=== PATIENT | female | born 1960 | race Caucasian/White ===

== ENCOUNTER 2017-08-25 11:56 | Inpatient (IN) | payer BC ==
[~2017-08-25] VITALS: Ht 177.8 cm; Wt 115.9 kg
[~2017-08-25 11:56] MED LIST: CLON0.5T4 PO; ESCI10TA PO; LISI-221 PO; OMEP10CA4 PO; TOPXL100 PO; UMEC1BLS IH
[2017-08-25 12:07] VITALS: BP_SYST 167
[2017-08-25 12:29] LABS: BASOPHILS # (AUTO) 0.1 K/uL (0.0-0.2); BASOPHILS % (AUTO) 0.8 % (0.0-2.0); EOSINOPHILS # (AUTO) 0.1 K/uL (0.0-0.4); EOSINOPHILS % (AUTO) 1.1 % (0.0-4.0); HEMATOCRIT 45.1 % (36-48); HEMOGLOBIN 14.9 g/dL (12.0-16.0); LYMPHOCYTES # (AUTO) 3.7 K/uL (1.0-5.5); LYMPHOCYTES % (AUTO) 29.4 % (20.5-51.5); MEAN CORPUSCULAR HEMOGLOBIN 29 pg (27-31); MEAN CORPUSCULAR HGB CONC 33 % (32-36); MEAN CORPUSCULAR VOLUME 86 fL (79.0-98.0); MONOCYTES # (AUTO) 0.7 K/uL (0.0-1.0); MONOCYTES % (AUTO) 5.2 % (1.7-9.3); NEUTROPHILS # (AUTO) 8.1 K/uL (1.8-7.7); NEUTROPHILS % (AUTO) 63.5 % (40.0-70.0); PLATELET COUNT (AUTO) 243 K/uL (130-430); RED BLOOD CELL COUNT(AUTO) 5.22 MIL/uL (4.2-6.2); RED CELL DISTRIBUTION WIDTH 12.6 % (9.0-15.0); WHITE BLOOD COUNT (AUTO) 12.7 K/uL (4.8-10.8)
[2017-08-25] MEDS ORDERED: LORazepam 2 MG/ML VIAL (FOR ER USE) IVP ONE (12:30)
[2017-08-25 12:35] LABS: CALCIUM 9.8 mg/dL (8.4-11.0); CREATININE 0.77 mg/dL (0.55-1.30); POTASSIUM 3.6 mmol/L (3.5-5.1)
[2017-08-25] MEDS ORDERED: GLU500 PO (12:36)
[2017-08-25 12:40] LABS: ALBUMIN 3.6 g/dL (3.4-4.8); TOTAL BILIRUBIN 0.3 mg/dL (0.0-1.0)
[2017-08-25 12:41] LABS: INR 0.9 (0.8-1.2); PROTHROMBIN TIME 9.6 SECS (9.5-12.5)
[2017-08-25] MEDS ORDERED: GLIM1TAB PO (13:17)
[2017-08-25] MEDS ORDERED: GLIM2TAB2 PO (13:17)
[2017-08-25 14:06] VITALS: BP_SYST 120
[2017-08-25 14:12] LABS: BILIRUBIN,URINE NEGATIVE (NEGATIVE); COLOR,URINE YELLOW (YELLOW); GLUCOSE,URINE NEGATIVE (NEGATIVE); KETONES,URINE NEGATIVE (NEGATIVE); LEUKOCYTE ESTERASE ,URINE 3+ (NEGATIVE); NITRITE, URINE NEGATIVE (NEGATIVE); PROTEIN URINE NEGATIVE (NEGATIVE); UROBILINOGEN,URINE 0.2 (0.2-1.0)
[2017-08-25 14:17] LABS: BLOOD, URINE TRACE (NEGATIVE); CLARITY/URINE HAZY (CLEAR)
[2017-08-25 14:29] LABS: BACTERIA,URINE FEW /HPF (None Seen); MUCUS,URINE None Seen /LPF (None Seen); RBC,URINE 0-3 /HPF (0-3); WBC,URINE 50-80 /HPF (0-3)
[2017-08-25 16:30] VITALS: BP_SYST 124
[2017-08-25] MEDS ORDERED: IPRATROPIUM BROM 0.5 MG/2.5 ML VIAL.NEB (ATROVENT) INH PRN (17:00)
[2017-08-25] MEDS ORDERED: DEXTROSE 50% JECT 50 ML DISP.SYRIN IVP PRN (17:00)
[2017-08-25] MEDS ORDERED: ALBUTEROL SULFATE 0.083% 2.5 MG/3 ML VIAL.NEB INH PRN (17:00)
[2017-08-25] MEDS ORDERED: GLIMEPIRIDE 2 MG TABLET PO SCH (17:00)
[2017-08-25 17:48] LABS: THYROID STIMULATING HORMONE 0.72 uIu/mL (0.34-4.82)
[2017-08-25] MEDS ORDERED: clonazePAM 0.5 MG TABLET PO ONE (18:30)
[2017-08-25] MEDS ORDERED: NICOTINE 21 MG/24 HR PATCH.TD24 TD ONE (18:30)
[2017-08-25] MEDS ORDERED: ASPIRIN 81 MG TAB.CHEW PO ONE (18:30)
[2017-08-25] MEDS: metFORMIN HCL 500 MG TABLET PO SCH (18:43)
[2017-08-25] MEDS: LORazepam 1 MG TABLET PO PRN (18:43)
[2017-08-25 19:50] VITALS: BP_SYST 141
[2017-08-25] MEDS ORDERED: LORazepam 1 MG TABLET PO ONE (20:30)
[2017-08-25] MEDS: IPRATROPIUM BROM 0.5 MG/2.5 ML VIAL.NEB (ATROVENT) INH SCH ×2 (20:46→23:09)
[2017-08-25] MEDS: ALBUTEROL SULFATE 0.083% 2.5 MG/3 ML VIAL.NEB INH SCH ×2 (20:47→23:09)
[2017-08-25 22:33] VITALS: BP_SYST 141
[2017-08-26 00:42] VITALS: BP_SYST 129
[2017-08-26] MEDS: IPRATROPIUM BROM 0.5 MG/2.5 ML VIAL.NEB (ATROVENT) INH SCH ×3 (03:30→11:00)
[2017-08-26] MEDS: ALBUTEROL SULFATE 0.083% 2.5 MG/3 ML VIAL.NEB INH SCH ×3 (03:30→11:00)
[2017-08-26] MEDS: INSULIN REGULAR, HUMAN 100 UNITS/ML, 10 ML VIAL (novoLIN R) SUBCUT PRN ×2 (06:22)
[2017-08-26] MEDS: LORazepam 1 MG TABLET PO PRN (06:32)
[2017-08-26] MEDS ORDERED: GLIMEPIRIDE 2 MG TABLET PO SCH (07:00)
[2017-08-26 08:26] VITALS: BP_SYST 150
[2017-08-26] MEDS: metFORMIN HCL 500 MG TABLET PO SCH (08:32)
[2017-08-26] MEDS ORDERED: clonazePAM 0.5 MG TABLET PO SCH (09:00)
[2017-08-26] MEDS ORDERED: HYDROCHLOROTHIAZIDE 25 MG TABLET (HCTZ) PO SCH (09:00)
[2017-08-26] MEDS ORDERED: NICOTINE 21 MG/24 HR PATCH.TD24 TD SCH (09:00)
[2017-08-26] MEDS ORDERED: ASPIRIN 81 MG TAB.CHEW PO SCH ×2 (09:00→09:30)
[2017-08-26] MEDS ORDERED: CITALOPRAM HYDROBROMIDE 20 MG TABLET PO SCH (09:00)
[2017-08-26] MEDS ORDERED: NON-FORMULARY MEDICATION (Lisinopril/Hctz* (LISINOPRIL-HCTZ 20-25 Mg Tab*) 1 TAB) PO SCH (09:00)
[2017-08-26] MEDS ORDERED: LISINOPRIL 20 MG TABLET PO SCH (09:00)
[2017-08-26] MEDS ORDERED: [UNRECOGNIZED DRUG - OTHER] IH SCH (09:00)
[2017-08-26] MEDS ORDERED: ATORVASTATIN 10 MG TABLET PO ONE (10:15)
[2017-08-26] MEDS ORDERED: METOPROLOL SUCCINATE 50 MG TAB.SR.24H (TOPROL XL) PO ONE (10:15)
[2017-08-26] MEDS ORDERED: LIP10 PO (11:11)
[2017-08-26] MEDS ORDERED: METO50TA7 PO (11:12)
[2017-08-26 11:16] VITALS: BP_SYST 143
[2017-08-26] MEDS ORDERED: LORazepam 1 MG TABLET PO ONE (11:30)
[2017-08-26 12:22] VITALS: BP_SYST 147
[2017-08-27] MEDS ORDERED: ATORVASTATIN 10 MG TABLET PO SCH (09:00)
[2017-08-27] MEDS ORDERED: METOPROLOL SUCCINATE 50 MG TAB.SR.24H (TOPROL XL) PO SCH (09:00)
== END 2017-08-26 13:16 | disposition home or self-care (01) | DRG 880 ==
LOC: SED 11:56 → STU 12:59
PROVIDERS: ADMIT Internal Medicine Hospice and Palliative Medicine; ATTEND Internal Medicine Hospice and Palliative Medicine
DX: F41.9 Anxiety disorder, unspecified (principal); E11.9 Type 2 diabetes mellitus without complications; E78.5 Hyperlipidemia, unspecified; F32.9 Major depressive disorder, single episode, unspecified; K21.9 Gastro-esophageal reflux disease without esophagitis; I10 Essential (primary) hypertension; F17.210 Nicotine dependence, cigarettes, uncomplicated; I49.3 Ventricular premature depolarization; J44.9 Chronic obstructive pulmonary disease, unspecified; Z80.1 Family history of malignant neoplasm of trachea, bronchus and lung; Z90.49 Acquired absence of other specified parts of digestive tract; Z88.0 Allergy status to penicillin; Z79.899 Other long term (current) drug therapy
CPT/HCPCS: 36415; 71045; 80053; 80061; 81000-TC; 82962; 83880; 84443-TC; 84484; 85025; 85610-TC; 85730-TC; 87086; 93005; 93306; 94640; 94760; 96374; 99285; J2060

== ENCOUNTER 2019-02-08 11:26 | Emergency (ER) | payer BC ==
[~2019-02-08] VITALS: Ht 177.8 cm; Wt 117.9 kg
[~2019-02-08 11:26] MED LIST changes: +CLON0.5T12 PO; -CLON0.5T4 PO; +GLIM1TAB PO; +GLIM2TAB2 PO; +GLU500 PO; +LIP10 PO; +METO50TA7 PO; -TOPXL100 PO
[2019-02-08 11:41] VITALS: BP_SYST 157
--- NOTE | 2019-02-08 11:48 | NUR ---
Patient to ER bed 2 to gown for evaluation. Side rails up. Report given to Chilango SINGH.
--- NOTE | 2019-02-08 11:54 | NUR ---
Patient is awake, alert, and oriented x4. Patient is complaining of lower back radiating to her groin x4 days. Patient also report nausea and diarrhea. Patient denies vomiting.
--- NOTE | 2019-02-08 12:00 | NUR ---
ER Dr. Simmons at bedside examining patient.
[2019-02-08] MEDS ORDERED: fentaNYL CITRATE/PF 100 MCG/2 ML AMP IM ONE (12:15)
--- NOTE | 2019-02-08 12:26 | NUR ---
Pt taken to radiology via gurney in stable condition
--- NOTE | 2019-02-08 13:28 | NUR ---
Patient given written and verbal discharge instructions and verbalizes understanding. ER MD discussed with patient the results and treatment provided. Patient in stable condition. ID arm band removed. Rx of macrobid, naproxen, tramadol given. Patient educated on pain management and to follow up with PMD. Pain Scale 10/10, MD is aware, patient medicated prior to DC. Opportunity for questions provided and answered. Medication side effect fact sheet provided.
[2019-02-08 13:29] VITALS: BP_SYST 145
[2019-02-08] MEDS ORDERED: MORPHINE SULFATE 10 MG/ML VIAL IM ONE (13:30)
== END 2019-02-08 13:29 | disposition home or self-care (01) ==
LOC: SED 11:26
DX: N39.0 Urinary tract infection, site not specified (principal); M54.5 Low back pain; J44.9 Chronic obstructive pulmonary disease, unspecified; E11.9 Type 2 diabetes mellitus without complications; I10 Essential (primary) hypertension; E78.00 Pure hypercholesterolemia, unspecified; F17.210 Nicotine dependence, cigarettes, uncomplicated; Z88.0 Allergy status to penicillin; Z79.899 Other long term (current) drug therapy
CPT/HCPCS: 72100; 72170; 81002; 96372; 99283; J2270; J3010

== ENCOUNTER 2020-01-05 11:03 | Emergency (ER) | payer BC ==
[~2020-01-05] VITALS: Ht 177.8 cm; Wt 108.9 kg
[~2020-01-05 11:03] MED LIST changes: +AMLO5TAB4 PO; +AZIT250T PO; +FURO-150 PO; -GLIM1TAB PO; -GLIM2TAB2 PO; -LIP10 PO; -OMEP10CA4 PO; +SITA100T11 PO; +TYC3 PO
[2020-01-05 11:16] VITALS: BP_SYST 162
[2020-01-05] MEDS ORDERED: EPINEPHrine 1 MG/ML AMP IM ONE (11:30)
[2020-01-05] MEDS ORDERED: KETOROLAC TROMETHAMINE 60 MG/2 ML VIAL IM ONE (12:15)
[2020-01-05 12:36] VITALS: BP_SYST 152
== END 2020-01-05 12:36 | disposition home or self-care (01) ==
LOC: SED 11:03
DX: T78.40XA Allergy, unspecified, initial encounter (principal); J44.9 Chronic obstructive pulmonary disease, unspecified; I10 Essential (primary) hypertension; E11.9 Type 2 diabetes mellitus without complications; E78.00 Pure hypercholesterolemia, unspecified; Z79.899 Other long term (current) drug therapy; Z88.0 Allergy status to penicillin; X58.XXXA Exposure to other specified factors, initial encounter
CPT/HCPCS: 96372; 99284; J0171; J1885

== ENCOUNTER 2020-01-13 09:20 | Inpatient (IN) | payer BC ==
[~2020-01-13] VITALS: Ht 182.9 cm; Wt 108.9 kg
[2020-01-13 09:20] VITALS: BP_SYST 138
[2020-01-13] MEDS ORDERED: NS 500 ML IV ONE (09:45)
[2020-01-13] MEDS ORDERED: DOXYCYCLINE HYCLATE 100 MG in D5W 100 ML IV ONE (09:45)
[2020-01-13 10:07] LABS: BASOPHILS # (AUTO) 0.1 K/uL (0.0-0.2); BASOPHILS % (AUTO) 0.5 % (0.0-2.0); EOSINOPHILS # (AUTO) 0.2 K/uL (0.0-0.4); EOSINOPHILS % (AUTO) 1.1 % (0.0-4.0); HEMATOCRIT 36.7 % (36-48); HEMOGLOBIN 12.3 g/dL (12.0-16.0); LYMPHOCYTES # (AUTO) 1.9 K/uL (1.0-5.5); LYMPHOCYTES % (AUTO) 12.6 % (20.5-51.5); MEAN CORPUSCULAR HEMOGLOBIN 29 pg (27-31); MEAN CORPUSCULAR HGB CONC 33 % (32-36); MEAN CORPUSCULAR VOLUME 87 fL (79.0-98.0); MONOCYTES # (AUTO) 0.9 K/uL (0.0-1.0); MONOCYTES % (AUTO) 5.9 % (1.7-9.3); NEUTROPHILS # (AUTO) 12.3 K/uL (1.8-7.7); NEUTROPHILS % (AUTO) 79.9 % (40.0-70.0); PLATELET COUNT (AUTO) 219 K/uL (130-430); RED BLOOD CELL COUNT(AUTO) 4.24 MIL/uL (4.2-6.2); RED CELL DISTRIBUTION WIDTH 14.1 % (9.0-15.0); WHITE BLOOD COUNT (AUTO) 15.3 K/uL (4.8-10.8)
[2020-01-13 10:25] LABS: CALCIUM 9.7 mg/dL (8.4-11.0); CREATININE 0.7 mg/dL (0.55-1.30); POTASSIUM 3.8 mmol/L (3.5-5.1)
[2020-01-13 10:28] LABS: PROTHROMBIN TIME 9.6 SECS (9.5-12.5)
[2020-01-13 10:30] LABS: ALBUMIN 3.2 g/dL (3.4-4.8); TOTAL BILIRUBIN 0.4 mg/dL (0.0-1.0)
[2020-01-13] MEDS ORDERED: DOXYCYCLINE HYCLATE 100 MG VIAL IV ONE ×2 (10:33→22:13)
[2020-01-13] MEDS ORDERED: ACETAMINOPHEN 325 MG TABLET PO PRN ×2 (12:00→17:00)
[2020-01-13] MEDS ORDERED: MORPHINE 2 MG/ML INJ. SYRINGE IVP ONE (12:15)
[2020-01-13] MEDS ORDERED: ACETAMINOPHEN 325 MG TABLET ONE (12:17)
[2020-01-13 13:20] VITALS: BP_SYST 142
[2020-01-13] MEDS ORDERED: KETOROLAC TROMETHAMINE 30 MG VIAL IVP ONE (14:30)
[2020-01-13] MEDS ORDERED: clonazePAM 0.5 MG TABLET PO PRN (17:00)
[2020-01-13] MEDS ORDERED: ACETAMINOPHEN/CODEINE 300 MG-30 MG TABLET PO PRN (17:00)
[2020-01-13] MEDS ORDERED: HYDROcodone/ACETAMIN 5-325 MG TAB (NORCO/ VICODIN) PO PRN (17:00)
[2020-01-13] MEDS ORDERED: ONDANSETRON HCL 4 MG/2 ML VIAL IVP PRN (17:00)
[2020-01-13] MEDS ORDERED: LORazepam 2 MG/ML VIAL IVP PRN (17:00)
[2020-01-13] MEDS ORDERED: NALOXONE HCL 0.4 MG/ML AMP (NARCAN) IVP PRN ×4 (17:00)
[2020-01-13 17:54] VITALS: BP_SYST 158
[2020-01-13] MEDS: metFORMIN HCL 500 MG TABLET PO SCH (18:06)
[2020-01-13] MEDS: MORPHINE 2 MG/ML INJ. SYRINGE IVP PRN ×2 (18:07→22:35)
[2020-01-13 20:00] VITALS: BP_SYST 144
[2020-01-13] MEDS: HYDROcodone/ACETAMIN 10-325 MG TAB PO PRN (20:22)
[2020-01-13] MEDS: NORMAL SALINE 5 ML DISP.SYRIN IVF SCH (22:00)
[2020-01-13] MEDS ORDERED: NORMAL SALINE 5 ML DISP.SYRIN IVF SCH (22:00)
[2020-01-13] MEDS: DOXYCYCLINE HYCLATE 100 MG in D5W 100 ML IV SCH (23:05)
[2020-01-14] MEDS: HYDROcodone/ACETAMIN 10-325 MG TAB PO PRN ×5 (00:13→20:41)
[2020-01-14] MEDS: MORPHINE 2 MG/ML INJ. SYRINGE IVP PRN ×5 (04:12→22:43)
[2020-01-14] MEDS: NORMAL SALINE 5 ML DISP.SYRIN IVF SCH ×3 (04:46→22:44)
[2020-01-14] MEDS: IPRATROPIUM BROM 0.5 MG/2.5 ML VIAL.NEB (ATROVENT) INH SCH ×3 (08:00→20:10)
[2020-01-14] MEDS: ALBUTEROL SULFATE 0.083% 2.5 MG/3 ML VIAL.NEB INH SCH ×3 (08:00→20:10)
[2020-01-14 08:22] LABS: BASOPHILS % (AUTO) 0.2 % (0.0-2.0); EOSINOPHILS # (AUTO) 0.1 K/uL (0.0-0.4); EOSINOPHILS % (AUTO) 0.8 % (0.0-4.0); HEMATOCRIT 37.5 % (36-48); HEMOGLOBIN 12.4 g/dL (12.0-16.0); LYMPHOCYTES # (AUTO) 1.9 K/uL (1.0-5.5); LYMPHOCYTES % (AUTO) 13.2 % (20.5-51.5); MEAN CORPUSCULAR HEMOGLOBIN 28 pg (27-31); MEAN CORPUSCULAR HGB CONC 33 % (32-36); MEAN CORPUSCULAR VOLUME 86 fL (79.0-98.0); MONOCYTES # (AUTO) 0.9 K/uL (0.0-1.0); MONOCYTES % (AUTO) 6.3 % (1.7-9.3); NEUTROPHILS # (AUTO) 11.2 K/uL (1.8-7.7); NEUTROPHILS % (AUTO) 79.5 % (40.0-70.0); PLATELET COUNT (AUTO) 221 K/uL (130-430); RED BLOOD CELL COUNT(AUTO) 4.38 MIL/uL (4.2-6.2); RED CELL DISTRIBUTION WIDTH 14.2 % (9.0-15.0); WHITE BLOOD COUNT (AUTO) 14.1 K/uL (4.8-10.8)
[2020-01-14 08:43] VITALS: BP_SYST 142
[2020-01-14 08:57] LABS: CALCIUM 9.7 mg/dL (8.4-11.0); CREATININE 0.56 mg/dL (0.55-1.30); PHOSPHORUS 3.3 mg/dL (2.7-4.5); POTASSIUM 3.4 mmol/L (3.5-5.1)
[2020-01-14] MEDS ORDERED: NON-FORMULARY MEDICATION (Lisinopril/Hctz* (LISINOPRIL-HCTZ 20-25 Mg Tab*) 1 TAB) PO SCH (09:00)
[2020-01-14] MEDS: LISINOPRIL 20 MG TABLET PO SCH (09:01)
[2020-01-14] MEDS: HYDROCHLOROTHIAZIDE 25 MG TABLET (HCTZ) PO SCH (09:01)
[2020-01-14] MEDS: CITALOPRAM HYDROBROMIDE 20 MG TABLET PO SCH (09:02)
[2020-01-14] MEDS: metFORMIN HCL 500 MG TABLET PO SCH ×2 (09:02→17:19)
[2020-01-14] MEDS: METOPROLOL SUCCINATE 50 MG TAB.SR.24H (TOPROL XL) PO SCH (09:03)
[2020-01-14] MEDS: FUROSEMIDE 20 MG TABLET PO SCH (09:03)
[2020-01-14] MEDS: amLODIPine BESYLATE 5 MG TABLET PO SCH (09:04)
[2020-01-14] MEDS: DOXYCYCLINE HYCLATE 100 MG in D5W 100 ML IV SCH ×2 (09:16→20:42)
[2020-01-14] MEDS ORDERED: OXYCODONE/ACETAMINOPHEN *10*mg/325 mg TABLET PO PRN (11:15)
[2020-01-14] MEDS ORDERED: POTASSIUM CHLORIDE 20 MEQ TAB.PRT.SR PO ONE (11:15)
[2020-01-14 12:36] VITALS: BP_SYST 137
[2020-01-14] MEDS: AZTREONAM 1 GM in NS 50 ML IV SCH ×3 (12:43→22:43)
[2020-01-14] MEDS: DIPHENHYDRAMINE HCL 50 MG CAPSULE PO PRN ×2 (14:03→20:40)
[2020-01-14 16:45] VITALS: BP_SYST 131
[2020-01-14 19:45] VITALS: BP_SYST 128
[2020-01-15] MEDS: ALBUTEROL SULFATE 0.083% 2.5 MG/3 ML VIAL.NEB INH SCH ×4 (01:00→19:42)
[2020-01-15] MEDS: IPRATROPIUM BROM 0.5 MG/2.5 ML VIAL.NEB (ATROVENT) INH SCH ×4 (01:00→19:42)
[2020-01-15 01:10] VITALS: BP_SYST 138
[2020-01-15] MEDS: HYDROcodone/ACETAMIN 10-325 MG TAB PO PRN ×3 (02:37→23:23)
[2020-01-15] MEDS: NORMAL SALINE 5 ML DISP.SYRIN IVF SCH ×3 (05:37→21:26)
[2020-01-15] MEDS: AZTREONAM 1 GM in NS 50 ML IV SCH ×3 (05:37→21:25)
[2020-01-15] MEDS: MORPHINE 2 MG/ML INJ. SYRINGE IVP PRN ×4 (05:38→21:12)
[2020-01-15 06:52] LABS: BASOPHILS % (AUTO) 0.3 % (0.0-2.0); EOSINOPHILS # (AUTO) 0.2 K/uL (0.0-0.4); EOSINOPHILS % (AUTO) 1.5 % (0.0-4.0); HEMATOCRIT 36.5 % (36-48); LYMPHOCYTES # (AUTO) 2.9 K/uL (1.0-5.5); LYMPHOCYTES % (AUTO) 25.8 % (20.5-51.5); MEAN CORPUSCULAR HEMOGLOBIN 29 pg (27-31); MEAN CORPUSCULAR HGB CONC 33 % (32-36); MEAN CORPUSCULAR VOLUME 86 fL (79.0-98.0); MONOCYTES # (AUTO) 0.8 K/uL (0.0-1.0); MONOCYTES % (AUTO) 6.9 % (1.7-9.3); NEUTROPHILS # (AUTO) 7.5 K/uL (1.8-7.7); NEUTROPHILS % (AUTO) 65.5 % (40.0-70.0); PLATELET COUNT (AUTO) 230 K/uL (130-430); RED BLOOD CELL COUNT(AUTO) 4.23 MIL/uL (4.2-6.2); RED CELL DISTRIBUTION WIDTH 14.2 % (9.0-15.0); WHITE BLOOD COUNT (AUTO) 11.4 K/uL (4.8-10.8)
[2020-01-15 07:09] LABS: CALCIUM 9.9 mg/dL (8.4-11.0); CREATININE 0.91 mg/dL (0.55-1.30); POTASSIUM 3.3 mmol/L (3.5-5.1)
[2020-01-15 07:24] LABS: C-REACTIVE PROTEIN QUANT 14.2 mg/dL (0-0.5)
[2020-01-15 07:51] LABS: ERYTHROCYTE SEDIMENTATION RATE 62 MM/HR (0-20)
[2020-01-15 08:27] VITALS: BP_SYST 127
[2020-01-15] MEDS: DIPHENHYDRAMINE HCL 50 MG CAPSULE PO PRN ×2 (08:40→16:36)
[2020-01-15] MEDS: metFORMIN HCL 500 MG TABLET PO SCH (08:40)
[2020-01-15] MEDS: CITALOPRAM HYDROBROMIDE 20 MG TABLET PO SCH (08:41)
[2020-01-15] MEDS: HYDROCHLOROTHIAZIDE 25 MG TABLET (HCTZ) PO SCH (08:41)
[2020-01-15] MEDS: FUROSEMIDE 20 MG TABLET PO SCH (08:42)
[2020-01-15] MEDS: METOPROLOL SUCCINATE 50 MG TAB.SR.24H (TOPROL XL) PO SCH (08:43)
[2020-01-15] MEDS: amLODIPine BESYLATE 5 MG TABLET PO SCH (08:43)
[2020-01-15] MEDS: LISINOPRIL 20 MG TABLET PO SCH (08:44)
[2020-01-15] MEDS: DOXYCYCLINE HYCLATE 100 MG in D5W 100 ML IV SCH ×2 (08:52→21:38)
[2020-01-15] MEDS ORDERED: HYDR-3925 PO (10:26)
[2020-01-15] MEDS ORDERED: ERTA1VIA IJ (10:26)
[2020-01-15] MEDS ORDERED: PERC10 PO (10:26)
[2020-01-15 11:39] LABS: INR 0.9 (0.8-1.2); PROTHROMBIN TIME 9.5 SECS (9.5-12.5)
[2020-01-15 12:00] VITALS: BP_SYST 111
[2020-01-15 16:47] VITALS: BP_SYST 127
[2020-01-15 19:00] VITALS: BP_SYST 122
[2020-01-15] MEDS ORDERED: POTASSIUM CHLORIDE 20 MEQ TAB.PRT.SR PO ONE (19:15)
[2020-01-15 20:00] VITALS: BP_SYST 122
[2020-01-16 01:03] VITALS: BP_SYST 134
[2020-01-16] MEDS: IPRATROPIUM BROM 0.5 MG/2.5 ML VIAL.NEB (ATROVENT) INH SCH ×3 (01:30→13:00)
[2020-01-16] MEDS: ALBUTEROL SULFATE 0.083% 2.5 MG/3 ML VIAL.NEB INH SCH ×3 (01:35→13:00)
[2020-01-16] MEDS: MORPHINE 2 MG/ML INJ. SYRINGE IVP PRN ×3 (01:42→09:51)
[2020-01-16] MEDS: AZTREONAM 1 GM in NS 50 ML IV SCH ×2 (05:47→13:07)
[2020-01-16] MEDS: NORMAL SALINE 5 ML DISP.SYRIN IVF SCH ×2 (05:47→14:27)
[2020-01-16 06:29] LABS: BASOPHILS % (AUTO) 0.3 % (0.0-2.0); EOSINOPHILS # (AUTO) 0.2 K/uL (0.0-0.4); EOSINOPHILS % (AUTO) 2.3 % (0.0-4.0); HEMATOCRIT 38.1 % (36-48); HEMOGLOBIN 12.5 g/dL (12.0-16.0); LYMPHOCYTES # (AUTO) 2.7 K/uL (1.0-5.5); LYMPHOCYTES % (AUTO) 29.3 % (20.5-51.5); MEAN CORPUSCULAR HEMOGLOBIN 28 pg (27-31); MEAN CORPUSCULAR HGB CONC 33 % (32-36); MEAN CORPUSCULAR VOLUME 86 fL (79.0-98.0); MONOCYTES # (AUTO) 0.6 K/uL (0.0-1.0); MONOCYTES % (AUTO) 6.6 % (1.7-9.3); NEUTROPHILS # (AUTO) 5.6 K/uL (1.8-7.7); NEUTROPHILS % (AUTO) 61.5 % (40.0-70.0); PLATELET COUNT (AUTO) 227 K/uL (130-430); RED BLOOD CELL COUNT(AUTO) 4.43 MIL/uL (4.2-6.2); RED CELL DISTRIBUTION WIDTH 13.8 % (9.0-15.0); WHITE BLOOD COUNT (AUTO) 9.2 K/uL (4.8-10.8)
[2020-01-16 07:15] LABS: C-REACTIVE PROTEIN QUANT 6.9 mg/dL (0-0.5); CALCIUM 10.3 mg/dL (8.4-11.0); CREATININE 0.68 mg/dL (0.55-1.30); POTASSIUM 3.7 mmol/L (3.5-5.1)
[2020-01-16] MEDS: HYDROcodone/ACETAMIN 10-325 MG TAB PO PRN ×2 (07:32→12:20)
[2020-01-16 07:41] VITALS: BP_SYST 133
[2020-01-16] MEDS: DOXYCYCLINE HYCLATE 100 MG in D5W 100 ML IV SCH (08:11)
[2020-01-16] MEDS: CITALOPRAM HYDROBROMIDE 20 MG TABLET PO SCH (08:13)
[2020-01-16] MEDS: metFORMIN HCL 500 MG TABLET PO SCH ×2 (08:13→09:05)
[2020-01-16] MEDS: HYDROCHLOROTHIAZIDE 25 MG TABLET (HCTZ) PO SCH (08:14)
[2020-01-16] MEDS: LISINOPRIL 20 MG TABLET PO SCH (08:14)
[2020-01-16] MEDS: FUROSEMIDE 20 MG TABLET PO SCH (08:15)
[2020-01-16] MEDS: amLODIPine BESYLATE 5 MG TABLET PO SCH (08:15)
[2020-01-16] MEDS: METOPROLOL SUCCINATE 50 MG TAB.SR.24H (TOPROL XL) PO SCH (08:16)
[2020-01-16] MEDS: DIPHENHYDRAMINE HCL 50 MG CAPSULE PO PRN (08:19)
[2020-01-16 09:56] LABS: ERYTHROCYTE SEDIMENTATION RATE 55 MM/HR (0-20)
[2020-01-16 12:10] VITALS: BP_SYST 118
[2020-01-16 13:18] VITALS: BP_SYST 118
== END 2020-01-16 14:15 | disposition home or self-care (01) | DRG 639 ==
LOC: SED 09:20 → SMU 11:47
PROVIDERS: ADMIT Preventive Medicine Preventive Medicine/Occupational Environmental Medicine; ATTEND Preventive Medicine Preventive Medicine/Occupational Environmental Medicine
PROC: 02HV33Z Insertion of Infusion Device into Superior Vena Cava, Percutaneous Approach (ICD-10-PCS; principal; 2020-01-15)
PROC: B548ZZA Ultrasonography of Superior Vena Cava, Guidance (ICD-10-PCS; 2020-01-15)
DX: E11.69 Type 2 diabetes mellitus with other specified complication (principal); M27.2 Inflammatory conditions of jaws; E78.5 Hyperlipidemia, unspecified; I10 Essential (primary) hypertension; E66.9 Obesity, unspecified; K05.219 Aggressive periodontitis, localized, unspecified severity; F17.200 Nicotine dependence, unspecified, uncomplicated; J44.9 Chronic obstructive pulmonary disease, unspecified; Z88.9 Allergy status to unspecified drugs, medicaments and biological substances; Z88.1 Allergy status to other antibiotic agents; Z88.0 Allergy status to penicillin; Z79.899 Other long term (current) drug therapy; Z79.84 Long term (current) use of oral hypoglycemic drugs; Z68.32 Body mass index [BMI] 32.0-32.9, adult
CPT/HCPCS: 36415; 70486-TC; 71045; 80048; 80053; 83605; 83735-TC; 84100-TC; 84484; 85025; 85610-TC; 85651-TC; 85730-TC; 86140; 87040-TC; 87081; 93005; 94640; 94760; 96365; 96375; 99285; C1751; J1885; J2270; J3490; J7040; J7060; J7613; Q0163

== ENCOUNTER 2020-01-31 16:09 | Inpatient (IN) | payer BC ==
[~2020-01-31] VITALS: Ht 177.8 cm; Wt 112.5 kg
[~2020-01-31 16:09] MED LIST changes: +ERTA1VIA IJ; +HYDR-3925 PO; +PERC10 PO; -TYC3 PO
[2020-01-31 16:19] VITALS: BP_SYST 149
--- NOTE | 2020-01-31 16:26 | NUR ---
Patient triaged and placed in waiting room. VSS and patient appears in no acute distress at this time. Awaiting available bed, and MD notified of need for MSE.
--- NOTE | 2020-01-31 17:03 | NUR ---
Patient to ER bed 2 to gown for evaluation. Side rails up. Report given to FRANCISCO Butt.
--- NOTE | 2020-01-31 17:05 | NUR ---
Patient arrived in the ED for an abscess on her neck that started 01/10/20. Dr. Dai wants her admitted for osteomyelitis. Denied any fevers, chills, nausea or vomiting. Patient is alert and oriented x4, respirations even and unlabored, speaking in full sentences and ambulating with a steady gait. PICC line on RUDOLPH noted. VSS, pain severity 5/10. Informed of the approximate wait time. Instructed to notify ED staff for any changes in condition or worsening of symptoms. Patient verbalized understanding.
--- NOTE | 2020-01-31 18:04 | NUR ---
ER Dr. Reeder at bedside examining patient.
--- NOTE | 2020-01-31 18:09 | NUR ---
Patient is prepped for incision and drainage.
--- NOTE | 2020-01-31 18:10 | NUR ---
DR. HALE AT THE BEDSIDE FOR INCISION AND DRAINAGE. PT TOLERATED WELL. INCISION PACKED AND COVERED WITH GUAZE AND TAPED.
[2020-01-31] MEDS ORDERED: MORPHINE 4 MG/ML INJ. SYRINGE IVP ONE (18:15)
[2020-01-31] MEDS ORDERED: VANCOMYCIN HCL 1,000 MG in NS 250 ML IV ONE (18:15)
[2020-01-31] MEDS ORDERED: PROPOFOL 200MG/ 20ML VIAL (DIPRIVAN) IV ONE (18:30)
[2020-01-31] MEDS ORDERED: LIDOCAINE/EPI 2% 1:100000 20 ML VIAL INJ ONE (18:30)
[2020-01-31 18:36] LABS: BASOPHILS # (AUTO) 0.2 K/uL (0.0-0.2); BASOPHILS % (AUTO) 1.5 % (0.0-2.0); EOSINOPHILS # (AUTO) 0.4 K/uL (0.0-0.4); EOSINOPHILS % (AUTO) 2.9 % (0.0-4.0); HEMATOCRIT 37.7 % (36-48); HEMOGLOBIN 12.4 g/dL (12.0-16.0); LYMPHOCYTES # (AUTO) 3.2 K/uL (1.0-5.5); LYMPHOCYTES % (AUTO) 25.4 % (20.5-51.5); MEAN CORPUSCULAR HEMOGLOBIN 29 pg (27-31); MEAN CORPUSCULAR HGB CONC 33 % (32-36); MEAN CORPUSCULAR VOLUME 87 fL (79.0-98.0); MONOCYTES # (AUTO) 0.7 K/uL (0.0-1.0); MONOCYTES % (AUTO) 5.6 % (1.7-9.3); NEUTROPHILS % (AUTO) 64.6 % (40.0-70.0); PLATELET COUNT (AUTO) 259 K/uL (130-430); RED BLOOD CELL COUNT(AUTO) 4.36 MIL/uL (4.2-6.2); RED CELL DISTRIBUTION WIDTH 14.1 % (9.0-15.0); WHITE BLOOD COUNT (AUTO) 12.4 K/uL (4.8-10.8)
[2020-01-31] MEDS ORDERED: VANCOMYCIN HCL 1000 MG/VIAL IV ONE (18:44)
[2020-01-31 19:04] LABS: CALCIUM 9.4 mg/dL (8.4-11.0); CREATININE 0.83 mg/dL (0.55-1.30); POTASSIUM 3.4 mmol/L (3.5-5.1)
[2020-01-31 19:08] LABS: ALBUMIN 3.1 g/dL (3.4-4.8); TOTAL BILIRUBIN 0.2 mg/dL (0.0-1.0)
[2020-01-31] MEDS ORDERED: ONDANSETRON HCL 4 MG/2 ML VIAL IVP PRN (19:15)
--- NOTE | 2020-01-31 19:21 | NUR ---
REPORT GIVEN TO FRANCISCO OBANDO FOR CONTINUATION IN CARE
--- NOTE | 2020-01-31 19:30 | NUR ---
pt is a&o x4, states her jaw feels uncomfortable but the morphine is taking the pain away.
--- NOTE | 2020-01-31 19:37 | NUR ---
called FRANCISCO Kahn to request M/S bed.
--- NOTE | 2020-01-31 20:43 | NUR ---
pt ambulated to restroom with steady gait.
--- NOTE | 2020-01-31 20:53 | NUR ---
pt reports pain is a 6 out of 10 and is very uncomfortable.
[2020-01-31] MEDS: HYDROcodone/ACETAMIN 10-325 MG TAB PO PRN (21:03)
--- NOTE | 2020-01-31 21:03 | NUR ---
pt medicated per Dr. Vega order with norco 10-325mg PO. pt tolerated well.
[2020-01-31 21:08] VITALS: BP_SYST 149
[2020-01-31 21:28] LABS: BILIRUBIN,URINE NEGATIVE (NEGATIVE); BLOOD, URINE NEGATIVE (NEGATIVE); COLOR,URINE YELLOW (YELLOW); GLUCOSE,URINE NEGATIVE (NEGATIVE); KETONES,URINE NEGATIVE (NEGATIVE); LEUKOCYTE ESTERASE ,URINE 1+ (NEGATIVE); NITRITE, URINE NEGATIVE (NEGATIVE); PROTEIN URINE NEGATIVE (NEGATIVE); UROBILINOGEN,URINE 0.2 (0.2-1.0)
[2020-01-31 21:41] LABS: CLARITY/URINE SLIGHTLY HAZY (CLEAR)
--- NOTE | 2020-01-31 21:48 | NUR ---
Patient will be admitted to care of Dr. Vega. Admitted to M/S unit. Will go to room 108C. Belongings list completed. Complete and up to date summary report printed. SBAR report to be given at bedside with opportunity for questions.
[2020-01-31] MEDS ORDERED: NORMAL SALINE 5 ML DISP.SYRIN IVF SCH (22:00)
[2020-01-31 22:05] LABS: BACTERIA,URINE FEW /HPF (None Seen); RBC,URINE 0-3 /HPF (0-3); WBC,URINE 0-3 /HPF (0-3)
--- NOTE | 2020-01-31 22:17 | NUR ---
Transfer to [facility]. IV present no sign or symptom of infiltration.
--- NOTE | 2020-01-31 22:17 | NUR ---
called and gave report to FRANCISCO Al for continuation of care on M/S.
--- NOTE | 2020-01-31 22:24 | NUR ---
ADMISSION NOTE Received patient from ER via monserrat, received report from FRANCISCO VARELA. Patient admitted with diagnosis of SUBMANDIBULAR ABCESS. Patient oriented to hospital routine, call light, toileting and safety-patient verbalized understanding.
[2020-01-31 22:48] VITALS: BP_SYST 162
[2020-01-31] MEDS: NORMAL SALINE 5 ML DISP.SYRIN IVF SCH (22:59)
[2020-01-31] MEDS: OXYCODONE/ACETAMINOPHEN *10*mg/325 mg TABLET PO PRN (23:01)
--- NOTE | 2020-01-31 23:01 | NUR ---
MEDICATIONS/ROUNDS Patient resting in bed, AAOx4, breathing evenly and nonlabored on room air. Patient has a PICC line on the RUDOLPH, last dressing change was 01/31/2020, flushed, patent and benign, no s/s of infection or infiltration noted at this time. Patient complained of severe pain. Educated patient on PRN pain medication, nonpharmacological interventions, patient stated understanding. Administered pain medication, patient tolerated it well. No other needs at this time. Fall/safety precautions, will continue to monitor.
[2020-02-01] MEDS: IPRATROPIUM BROM 0.5 MG/2.5 ML VIAL.NEB (ATROVENT) INH SCH ×4 (00:04→19:53)
[2020-02-01] MEDS: ALBUTEROL SULFATE 0.083% 2.5 MG/3 ML VIAL.NEB INH SCH ×4 (00:04→19:53)
--- NOTE | 2020-02-01 01:00 | NUR ---
ROUNDS Patient resting in bed, eyes closed, breathing evenly and nonlabored on room air. No s/s of distress at this time, no other needs at this time. Fall/safety precautions, will continue to monitor.
--- NOTE | 2020-02-01 02:55 | NUR ---
ROUNDS Patient resting in bed, eyes closed, breathing evenly and nonlabored on room air. No s/s of distress at this time, no other needs at this time. Fall/safety precautions, will continue to monitor the patient.
[2020-02-01] MEDS: HYDROcodone/ACETAMIN 10-325 MG TAB PO PRN ×2 (04:12→16:12)
[2020-02-01 04:13] VITALS: BP_SYST 152
--- NOTE | 2020-02-01 04:13 | NUR ---
ROUNDS Patient resting in bed, eyes closed, breathing evenly and nonlabored on room air. No s/s of distress at this time, no other needs at this time. Fall/safety precautions, will continue to monitor. Addendum: 02/01/20 at 0655 by Brennon Lechuga RN MEDICATIONS/ROUNDS Patient resting in bed, awake, breathing evenly and nonlabored on room air. Patient complained of moderate pain. Educated patient on pain medication, patient stated understanding. Administered pain medication, patient tolerated it well. Patient asked for hot tea which was provided. No other needs at this time. Fall/safety precautions, will continue to monitor.
--- NOTE | 2020-02-01 04:39 | NUR ---
PAGED FOR CONSULT REASON FOR CONSULT: SUBMANDIBULAR ABSCESS ORDERED BY: DR. VEGAS DIALED: [phone] SPOKE TO: ADELE
[2020-02-01] MEDS: NORMAL SALINE 5 ML DISP.SYRIN IVF SCH ×3 (05:55→22:17)
--- NOTE | 2020-02-01 06:00 | NUR ---
CLOSING NOTES Patient resting in bed, awake, breathing evenly and nonlabored on room air. PICC line flushed, no s/s of infiltration at this time, no s/s of infection at this time. Patient denies pain at this time. No s/s of distress at this time, no other needs at this time. Needs met throughout the shift. Fall/safety precautions, will endorse care to morning shift RN.
[2020-02-01 06:44] LABS: BASOPHILS % (AUTO) 0.4 % (0.0-2.0); EOSINOPHILS # (AUTO) 0.3 K/uL (0.0-0.4); HEMATOCRIT 36.6 % (36-48); HEMOGLOBIN 12.3 g/dL (12.0-16.0); LYMPHOCYTES # (AUTO) 2.8 K/uL (1.0-5.5); LYMPHOCYTES % (AUTO) 26.3 % (20.5-51.5); MEAN CORPUSCULAR HEMOGLOBIN 29 pg (27-31); MEAN CORPUSCULAR HGB CONC 34 % (32-36); MEAN CORPUSCULAR VOLUME 85 fL (79.0-98.0); MONOCYTES # (AUTO) 0.6 K/uL (0.0-1.0); MONOCYTES % (AUTO) 5.9 % (1.7-9.3); NEUTROPHILS % (AUTO) 64.4 % (40.0-70.0); PLATELET COUNT (AUTO) 224 K/uL (130-430); RED CELL DISTRIBUTION WIDTH 14.3 % (9.0-15.0); WHITE BLOOD COUNT (AUTO) 10.8 K/uL (4.8-10.8)
[2020-02-01 06:53] LABS: ALBUMIN 2.9 g/dL (3.4-4.8); CALCIUM 9.2 mg/dL (8.4-11.0); CREATININE 0.8 mg/dL (0.55-1.30); POTASSIUM 3.1 mmol/L (3.5-5.1)
[2020-02-01 07:00] LABS: TOTAL BILIRUBIN 0.4 mg/dL (0.0-1.0)
--- NOTE | 2020-02-01 07:30 | NUR ---
OPENING NOTE Patient resting in the bed. No acute distress. AAO x 4. No c/o pain at this time. Skin warm and dry to touch. PICC line intact to RUDOLPH, no redness, no swelling, patent, covered with clean and dry transparent dressing. Discussed the safety issue, use call light when needs help, and plan of care, verbally understanding. Safety measure maintained. Call light within reached. Bed locked in low position, side rails up. Will continue to monitor.
[2020-02-01 07:55] VITALS: BP_SYST 143
[2020-02-01] MEDS: OXYCODONE/ACETAMINOPHEN *10*mg/325 mg TABLET PO PRN ×2 (09:14→13:33)
[2020-02-01] MEDS: METOPROLOL SUCCINATE 50 MG TAB.SR.24H (TOPROL XL) PO SCH (09:15)
[2020-02-01] MEDS: metFORMIN HCL 500 MG TABLET PO SCH ×2 (09:15→18:09)
[2020-02-01] MEDS: amLODIPine BESYLATE 5 MG TABLET PO SCH (09:16)
[2020-02-01] MEDS: AZITHROMYCIN 250 MG TABLET PO SCH (09:16)
[2020-02-01] MEDS: FUROSEMIDE 20 MG TABLET PO SCH (09:16)
[2020-02-01] MEDS: CITALOPRAM HYDROBROMIDE 20 MG TABLET PO SCH (09:16)
[2020-02-01] MEDS: HYDROCHLOROTHIAZIDE 25 MG TABLET (HCTZ) PO SCH (09:16)
[2020-02-01] MEDS: LISINOPRIL 20 MG TABLET PO SCH (09:17)
--- NOTE | 2020-02-01 09:17 | NUR ---
PERCOCET GIVEN Patient c/o chin, neck and face pain 7/10. Percocet 10mg/325mg 1 tab given as ordered. Patient resting in the bed, no acute distress. Safety measure maintained. Call light within reached. Bed in low position, side rails up. Continue to monitor.
[2020-02-01] MEDS ORDERED: POTASSIUM CHLORIDE 20 MEQ TAB.PRT.SR PO ONE (11:00)
--- NOTE | 2020-02-01 11:01 | NUR ---
POTASSIUM=3.1 Called and received the call back from Amanuel Chris. Reported to Dr. Vega, the patient's potassium=3.[address] Vega with order of K-dur 40 mEq PO x 1. Order read back and okay to Dr. Vega.
--- NOTE | 2020-02-01 11:25 | NUR ---
SEEN AND EXAMINED BY BOONE ESPAÑA WITH ORDER RECEIVED.
[2020-02-01 11:29] VITALS: BP_SYST 153
[2020-02-01] MEDS ORDERED: MEROPENEM 1 GM in NS 100 ML IV ONE (12:00)
--- NOTE | 2020-02-01 16:13 | NUR ---
NORCO GIVEN Patient c/o chin, neck and face pain 5/10. [place] 10/325mg 1 tab given as ordered. Patient resting in the bed, no acute distress. Safety measure maintained. Call light within reached. Bed in low position, side rails up. Continue to monitor.
[2020-02-01] MEDS ORDERED: NALOXONE HCL 0.4 MG/ML AMP (NARCAN) IVP PRN (17:45)
[2020-02-01] MEDS ORDERED: MORPHINE 2 MG/ML INJ. SYRINGE IVP PRN (17:45)
--- NOTE | 2020-02-01 17:50 | NUR ---
SEEN AND EXAMINED BY SHRAVAN GEORGES WITH ORDER RECEIVED.
--- NOTE | 2020-02-01 17:54 | NUR ---
CONSULT OTOLARYNGOLOGY SUBMANDIBULAR ABSCESS/OSTEOMYELITIS DR MART,[facility] [phone] S/W ELIZA EXCHANGE
[2020-02-01] MEDS: MORPHINE 4 MG/ML INJ. SYRINGE IVP PRN ×2 (18:11→22:08)
--- NOTE | 2020-02-01 18:50 | NUR ---
CLOSING NOTE Patient resting in the bed. No acute distress. AAO x 4. PRN pain med given as needed. Skin warm and dry to touch. PICC line intact to RUDOLPH, no redness, no swelling, patent, covered with clean and dry transparent dressing. All needs met. Safety measure maintained. Call light within reached. Bed locked in low position, side rails up. Will endorse to night nurse.
--- NOTE | 2020-02-01 19:30 | NUR ---
Opening note Received patient awake, AOx4, resting in bed, no sign of distress. Patient has PIIC to RUDOLPH, it is SL. V/S stable. non labored breathing on room air. Bed is locked in lowest position, bed alarm not on-patient refused, she has steady gait and has been walking to restroom. Call light w/in reach.
[2020-02-01 20:00] VITALS: BP_SYST 145
[2020-02-01] MEDS: MEROPENEM 1 GM in NS 100 ML IV SCH (22:17)
[2020-02-02 00:19] VITALS: BP_SYST 123
[2020-02-02] MEDS: ALBUTEROL SULFATE 0.083% 2.5 MG/3 ML VIAL.NEB INH SCH ×4 (01:00→19:57)
[2020-02-02] MEDS: IPRATROPIUM BROM 0.5 MG/2.5 ML VIAL.NEB (ATROVENT) INH SCH ×4 (01:00→19:57)
--- NOTE | 2020-02-02 01:30 | NUR ---
c/o itching Patient reports itching to jaw, requesting benadryl.
--- NOTE | 2020-02-02 01:34 | NUR ---
PAGED I PAGED DR. SHASTA Dial I SPOKE WITH DANIS HERNANDEZ
--- NOTE | 2020-02-02 02:06 | NUR ---
Dr. Jayro Vega s/w Dr. Jayro Vega; informed patient reporting itchiness and he provided po medication order for Benadryl, read back and entered in [employer].
[2020-02-02] MEDS: MORPHINE 4 MG/ML INJ. SYRINGE IVP PRN ×6 (02:11→21:18)
[2020-02-02] MEDS: clonazePAM 0.5 MG TABLET PO PRN ×2 (02:11→09:33)
[2020-02-02] MEDS ORDERED: DIPHENHYDRAMINE HCL 25 MG CAPSULE PO PRN (02:15)
[2020-02-02] MEDS: MEROPENEM 1 GM in NS 100 ML IV SCH ×3 (06:12→23:01)
[2020-02-02] MEDS: NORMAL SALINE 5 ML DISP.SYRIN IVF SCH ×3 (06:13→23:01)
--- NOTE | 2020-02-02 06:26 | NUR ---
antibiotic / morphine Patient reporting severe pain to jaw 12/15; administered Morphine. She also reports a sensation of swelling to lip and partial itching to jaw area; gave Benadryl PO. Administered Merrem antibiotic and infusing well. Flushed both PIIC line lumens and both are patent.
[2020-02-02 06:48] LABS: BASOPHILS # (AUTO) 0.1 K/uL (0.0-0.2); BASOPHILS % (AUTO) 0.6 % (0.0-2.0); EOSINOPHILS # (AUTO) 0.3 K/uL (0.0-0.4); EOSINOPHILS % (AUTO) 2.6 % (0.0-4.0); HEMATOCRIT 37.8 % (36-48); HEMOGLOBIN 12.6 g/dL (12.0-16.0); LYMPHOCYTES # (AUTO) 2.9 K/uL (1.0-5.5); LYMPHOCYTES % (AUTO) 28.9 % (20.5-51.5); MEAN CORPUSCULAR HEMOGLOBIN 29 pg (27-31); MEAN CORPUSCULAR HGB CONC 34 % (32-36); MEAN CORPUSCULAR VOLUME 85 fL (79.0-98.0); MONOCYTES # (AUTO) 0.6 K/uL (0.0-1.0); MONOCYTES % (AUTO) 5.7 % (1.7-9.3); NEUTROPHILS # (AUTO) 6.3 K/uL (1.8-7.7); NEUTROPHILS % (AUTO) 62.2 % (40.0-70.0); PLATELET COUNT (AUTO) 234 K/uL (130-430); RED BLOOD CELL COUNT(AUTO) 4.44 MIL/uL (4.2-6.2); RED CELL DISTRIBUTION WIDTH 14.4 % (9.0-15.0); WHITE BLOOD COUNT (AUTO) 10.1 K/uL (4.8-10.8)
[2020-02-02 07:04] LABS: CALCIUM 9.7 mg/dL (8.4-11.0); CREATININE 0.75 mg/dL (0.55-1.30); POTASSIUM 3.4 mmol/L (3.5-5.1)
--- NOTE | 2020-02-02 07:10 | NUR ---
closing note Patient resting in comfortable position. No s/sx of distress. Pain med given and pain and is comfortable, she is concerned that it will hurt when she chews/eats. Safety precautions maintained and call light w/in reach. Will endorse to day shift nurse.
--- NOTE | 2020-02-02 08:00 | NUR ---
ASSUMPTION OF CARE: RECEIVED PT A/A/OX4, DX:PAIN/COMFORT, R/T S/P FACIAL ABSCESS, PRESENTLY HAS CLEAN, DRY, DRSG INTACT, NO C/O PAIN, IV SITE INTACT, PATENT, NO REDNESS OR SWELLING, ORIENTED TO UNIT, CALL LIGHT PLACED WITHIN REACH, WILL CONT' TO MONITOR AND ASSESS.
[2020-02-02 08:59] LABS: ERYTHROCYTE SEDIMENTATION RATE 23 MM/HR (0-20)
--- NOTE | 2020-02-02 09:00 | NUR ---
NARCOTICS AGENT: MORNING MEDS GIVEN, PER ORDERED BY Evans, TOLERATED WELL, WILL CONT' TO MONITOR AND ASSESS.
[2020-02-02 09:15] VITALS: BP_SYST 146
[2020-02-02] MEDS: LORazepam 2 MG/ML VIAL IVP PRN ×2 (09:30→23:18)
[2020-02-02] MEDS: LISINOPRIL 20 MG TABLET PO SCH (09:31)
[2020-02-02] MEDS: FUROSEMIDE 20 MG TABLET PO SCH (09:31)
[2020-02-02] MEDS: amLODIPine BESYLATE 5 MG TABLET PO SCH (09:32)
[2020-02-02] MEDS: metFORMIN HCL 500 MG TABLET PO SCH ×2 (09:32→17:50)
[2020-02-02] MEDS: METOPROLOL SUCCINATE 50 MG TAB.SR.24H (TOPROL XL) PO SCH (09:33)
[2020-02-02] MEDS: CITALOPRAM HYDROBROMIDE 20 MG TABLET PO SCH (09:33)
[2020-02-02] MEDS: AZITHROMYCIN 250 MG TABLET PO SCH (09:34)
[2020-02-02] MEDS: HYDROCHLOROTHIAZIDE 25 MG TABLET (HCTZ) PO SCH (09:34)
[2020-02-02 12:35] VITALS: BP_SYST 151
[2020-02-02] MEDS ORDERED: IOHEXOL 100 ML IV ONE (14:28)
[2020-02-02 16:12] VITALS: BP_SYST 142
[2020-02-02] MEDS ORDERED: MORPHINE 2 MG/ML INJ. SYRINGE IVP PRN (18:15)
[2020-02-02] MEDS ORDERED: POTASSIUM CHLORIDE 20 MEQ TAB.PRT.SR PO ONE (18:15)
[2020-02-02] MEDS ORDERED: ACETAMINOPHEN 325 MG TABLET PO PRN (18:15)
[2020-02-02] MEDS ORDERED: OXYCODONE/ACETAMINOPHEN 5-325 TABLET PO PRN ×2 (18:15)
--- NOTE | 2020-02-02 19:35 | NUR ---
Opening note Received patient awake, AOx4, resting in bed, no sign of distress. Patient has PIIC to RUDOLPH, it is SL. Non labored breathing on room air. Bed is locked in lowest position, bed alarm not on-patient refused, she has steady gait and has been walking to restroom. Call light w/in reach.
[2020-02-02 20:00] VITALS: BP_SYST 121
--- NOTE | 2020-02-02 21:18 | NUR ---
Morphine Patient reporting severe pain to jaw and requested morphine and Benadryl for itchiness. Administered meds, will continue to monitor.
--- NOTE | 2020-02-02 23:01 | NUR ---
Antibiotic Due antibiotic, Merrem given as ordered and infusing well. Patient tolerating
--- NOTE | 2020-02-02 23:18 | NUR ---
Ativan Patient reporting she is restless, didn't sleep all day and requesting Ativan; it was administered, will continue to monitor.
[2020-02-03] MEDS: MORPHINE 4 MG/ML INJ. SYRINGE IVP PRN ×5 (00:15→14:59)
--- NOTE | 2020-02-03 00:15 | NUR ---
morphine Patient reporting severe pain to jaw; administered Morphine as ordered, will continue to monitor.
[2020-02-03 00:20] VITALS: BP_SYST 130
[2020-02-03] MEDS: IPRATROPIUM BROM 0.5 MG/2.5 ML VIAL.NEB (ATROVENT) INH SCH ×3 (01:31→13:00)
[2020-02-03] MEDS: ALBUTEROL SULFATE 0.083% 2.5 MG/3 ML VIAL.NEB INH SCH ×3 (01:31→13:00)
--- NOTE | 2020-02-03 03:15 | NUR ---
sleeping Patient is sleeping, symmetrical rise and fall of chest. No sign of distress or facial grimacing noted. Call light w/in reach.
--- NOTE | 2020-02-03 04:13 | NUR ---
sleeping Patient is sleeping, symmetrical rise and fall of chest, non labored breathing. No sign of distress or facial grimacing noted. Call light w/in reach.
--- NOTE | 2020-02-03 04:35 | NUR ---
morphine Patient reporting severe pain to jaw; administered Morphine. She ambulated to restroom and returned to bed. She reports neck and back are stiff and achy d/t bed is not comfortable. I asked her if she wants to walk in hallway and she said no, not now.
--- NOTE | 2020-02-03 04:48 | NUR ---
Blood draw compliance field technician at bedside for blood draw.
[2020-02-03] MEDS: NORMAL SALINE 5 ML DISP.SYRIN IVF SCH (06:29)
[2020-02-03] MEDS: MEROPENEM 1 GM in NS 100 ML IV SCH ×2 (06:29→14:06)
--- NOTE | 2020-02-03 06:31 | NUR ---
Antibiotic Due antibiotic, Merrem, administered and infusing well, patient tolerating. She requested coffee and it was provided. She also asked when is next time she can have pain med; I replied at 0712
[2020-02-03 06:35] LABS: BASOPHILS % (AUTO) 0.3 % (0.0-2.0); EOSINOPHILS # (AUTO) 0.3 K/uL (0.0-0.4); EOSINOPHILS % (AUTO) 2.9 % (0.0-4.0); HEMATOCRIT 39.6 % (36-48); HEMOGLOBIN 13.3 g/dL (12.0-16.0); LYMPHOCYTES # (AUTO) 2.8 K/uL (1.0-5.5); MEAN CORPUSCULAR HEMOGLOBIN 29 pg (27-31); MEAN CORPUSCULAR HGB CONC 34 % (32-36); MEAN CORPUSCULAR VOLUME 86 fL (79.0-98.0); MONOCYTES # (AUTO) 0.7 K/uL (0.0-1.0); MONOCYTES % (AUTO) 6.9 % (1.7-9.3); NEUTROPHILS # (AUTO) 6.8 K/uL (1.8-7.7); NEUTROPHILS % (AUTO) 63.9 % (40.0-70.0); PLATELET COUNT (AUTO) 242 K/uL (130-430); RED BLOOD CELL COUNT(AUTO) 4.63 MIL/uL (4.2-6.2); RED CELL DISTRIBUTION WIDTH 14.6 % (9.0-15.0); WHITE BLOOD COUNT (AUTO) 10.6 K/uL (4.8-10.8)
[2020-02-03 06:36] LABS: CALCIUM 9.9 mg/dL (8.4-11.0); CREATININE 0.89 mg/dL (0.55-1.30); POTASSIUM 3.9 mmol/L (3.5-5.1)
[2020-02-03 07:21] LABS: C-REACTIVE PROTEIN QUANT 2.6 mg/dL (0-0.5)
--- NOTE | 2020-02-03 07:30 | NUR ---
closing note endorsed report, patient stable
[2020-02-03 07:37] LABS: ERYTHROCYTE SEDIMENTATION RATE 25 MM/HR (0-20)
[2020-02-03 08:00] VITALS: BP_SYST 109
[2020-02-03] MEDS: metFORMIN HCL 500 MG TABLET PO SCH ×2 (08:00→08:25)
--- NOTE | 2020-02-03 08:00 | NUR ---
initial notes late entry rec patient awake laert with a picc line on the l upper arm. no infiltration noted. resp easy and unlabored. no osb noted. bed to the lowest position and fitness sales consultant ail up and locked. call light within reached. will continue to monitor patient.
[2020-02-03] MEDS: amLODIPine BESYLATE 5 MG TABLET PO SCH (08:22)
[2020-02-03] MEDS: LISINOPRIL 20 MG TABLET PO SCH (08:26)
[2020-02-03] MEDS: HYDROCHLOROTHIAZIDE 25 MG TABLET (HCTZ) PO SCH (08:27)
[2020-02-03] MEDS: FUROSEMIDE 20 MG TABLET PO SCH (08:28)
[2020-02-03] MEDS: AZITHROMYCIN 250 MG TABLET PO SCH (08:28)
[2020-02-03] MEDS: CITALOPRAM HYDROBROMIDE 20 MG TABLET PO SCH (08:28)
[2020-02-03] MEDS: clonazePAM 0.5 MG TABLET PO PRN (11:25)
[2020-02-03] MEDS ORDERED: BALSAM PERU/CASTOR OIL 60 GM OINT...G. TP ONE (13:00)
[2020-02-03 13:36] VITALS: BP_SYST 109
--- NOTE | 2020-02-03 14:46 | NUR ---
DC Planning: Discussed dcp with dr. Vega, the md will come to dc pt home to continue IV abx Invanz x 6 weeks at infusion ctr. arranged by dr. Pratt. The md confirmed to continue the iv med tomorrow at his infusion ctr. Patient and FRANCISCO Rea made aware.
[2020-02-03] MEDS ORDERED: HYDR-3925 PO (15:54)
[2020-02-03] MEDS ORDERED: PERC10 PO (15:54)
--- NOTE | 2020-02-03 16:00 | NUR ---
rounds seen by dr henderson with d/c order.
--- NOTE | 2020-02-03 16:27 | NUR ---
WOUND EVALUATION: Late note for 1626 secondary to patient care. Wound Consult received from Dr. Whatley. Thank you, Dr. Whatley, for the consult. Patient received in a [place] Bed with a mattress, awake, alert, and oriented. Patient is unable to turn independently. Marcus Score is a 13. Past Medical History: Asthma/COPD, Diabetes Mellitus, Hypertension, Hypercholesterolemia, Cholecystectomy, Cervical Conization surgery, Cervical Ablation surgery, Tonsillectomy, Laparoscopic Band surgery. Admitted from ER with complaint of submandibular abscess that started on 01/10/2020. Recent Labs: WBC 10.6, RBC 4.63, hemoglobin 13.3, hematocrit 39.6, ESR 25, BUN 11, creatinine 0.89, GFR 69, glucose 102, C-reactive protein 2.6, albumin 2.9. Microbiology: Blood culture results x2 in progress. Facial abscess culture results in progress. Intrinsic factors that delay wound healing: Asthma/COPD, Diabetes Mellitus, Hypoalbuminemia, possible Osteomyelitis. Extrinsic factors that delay wound healing: Decreased mobility. Per Dr. Euceda, no wound packing needed. Wound Assessment: 1. Left Submandibular Portion of Jaw: Abscess, present on admission. Patient is status post I&D in the emergency department. Wound bed has 95% yellow tissue, 5% red tissue. No odor, scant sanguineous drainage. Wound measures 0.6 cm x 0.5 cm x 0.3 cm. Recommend: Cleanse wound with saline. Gently pat dry around wound. Apply SurePrep to kunal-wound. Apply Venelex ointment to wound bed. Cover with foam dressing. Reinforce with gauze wrap and tape if dressing is not sticking. Also recommend: Encourage and assist patient as needed with repositioning every 2 hours with pillow support and off-load pressure areas with pillows for pressure re-distribution. Offload, elevate and float bilateral heels with pillows. Perform skin care and monitor skin integrity Q shift. Recommend continue at home: 1. Cleanse wound with saline (rinse, do not put gauze onto wound). 2. Gently pat dry around wound. 3. Apply SurePrep to area around wound. 4. Apply Venelex ointment to wound with sterile tongue depressor. 5. Cover with foam dressing. 6. Reinforce with gauze wrap and tape if dressing is not sticking. 7. Change dressing every three days, and as needed for dressing soiling or dislodgment. Patient will follow up with Dr. Mancuso for IV antibiotic administration, where nursing staff will check on wound. Patient to buy wound care supplies (was given ten dressing changes to go).
[2020-02-03 16:36] VITALS: BP_SYST 116
--- NOTE | 2020-02-03 17:00 | NUR ---
closing notes pt was discharged home via wheelchair. no osb noted. med red instruction given and the new presc written by dr henderson. pt went home with a picc line on the r upper arm. aware of her appt with the infusion clinic tomorrow. dressing on the l mandibular area intact, done by florence the wound nurse.
[2020-02-04] MEDS ORDERED: BALSAM PERU/CASTOR OIL 60 GM OINT...G. TP SCH (09:00)
== END 2020-02-03 17:00 | disposition home or self-care (01) | DRG 137 ==
LOC: SED 16:09 → SMU 19:09
PROVIDERS: ADMIT Preventive Medicine Preventive Medicine/Occupational Environmental Medicine; ATTEND Preventive Medicine Preventive Medicine/Occupational Environmental Medicine
PROC: 0J910ZZ Drainage of Face Subcutaneous Tissue and Fascia, Open Approach (ICD-10-PCS; principal; 2020-01-31)
DX: K12.2 Cellulitis and abscess of mouth (principal); E87.1 Hypo-osmolality and hyponatremia; E44.0 Moderate protein-calorie malnutrition; M27.2 Inflammatory conditions of jaws; D72.829 Elevated white blood cell count, unspecified; E11.65 Type 2 diabetes mellitus with hyperglycemia; E66.9 Obesity, unspecified; E11.69 Type 2 diabetes mellitus with other specified complication; E78.00 Pure hypercholesterolemia, unspecified; E78.5 Hyperlipidemia, unspecified; E87.6 Hypokalemia; Z20.828 Contact with and (suspected) exposure to other viral communicable diseases; F17.200 Nicotine dependence, unspecified, uncomplicated; I10 Essential (primary) hypertension; J44.9 Chronic obstructive pulmonary disease, unspecified; Z88.0 Allergy status to penicillin; Z88.1 Allergy status to other antibiotic agents; Z90.49 Acquired absence of other specified parts of digestive tract; Z68.35 Body mass index [BMI] 35.0-35.9, adult
CPT/HCPCS: 36415; 70491-TC; 80048; 80053; 81000-TC; 85025; 85651-TC; 86140; 87040-TC; 87070-TC; 94640; 96365; 96375; 99285; J2060; J2185; J2270; J2704; J3370; J7050; J7613; Q0144; Q0163; Q9967

== ENCOUNTER 2020-11-19 12:33 | Outpatient (CLI) | payer BC ==
[~2020-11-19 12:33] MED LIST changes: -AZIT250T PO; -CLON0.5T12 PO; +CLON0.5T4 PO; +ZIT250 PO
[2020-11-19 13:12] LABS: CREATININE 0.83 mg/dL (0.55-1.30)
== END 2020-11-19 20:47 | disposition home or self-care (01) ==
LOC: SCT 12:33
PROVIDERS: ATTEND Otolaryngology
DX: M86.9 Osteomyelitis, unspecified (principal); E04.1 Nontoxic single thyroid nodule
CPT/HCPCS: 36415; 70491; 76376; 82565; 84520; Q9967

== ENCOUNTER 2020-11-28 09:15 | Outpatient (CLI) | payer BC | END 2020-11-28 19:59 | disposition home or self-care (01) | LOC: SUS 09:15 | PROVIDERS: ATTEND Otolaryngology | DX: E04.2 Nontoxic multinodular goiter (principal) | CPT/HCPCS: 76536-TC ==

== ENCOUNTER 2021-05-01 09:28 | Outpatient (CLI) | payer BC | END 2021-05-01 19:44 | disposition home or self-care (01) | LOC: SUS 09:28 | PROVIDERS: ATTEND Otolaryngology | DX: E04.2 Nontoxic multinodular goiter (principal) | CPT/HCPCS: 76536-TC ==